=== PATIENT | female | born 1985 | race African-American/Black ===

== ENCOUNTER 2018-04-16 11:11 | Outpatient (CLI) | payer MEDICAID ==
[2018-04-16] MEDS ORDERED: LACTATED RINGERS 500 ML IV ONE (11:19)
[2018-04-16 11:31] VITALS: BP 123/79
[2018-04-16 12:32] LABS: Bacteria,Urine 1+ /HPF (Negative); Bilirubin,Urine NEG (Negative); Blood,Urine NEG (Negative); Color,Urine Yellow (Yellow); Mucus,Urine FEW /HPF; Protein,Urine <15 mg/dL mg/dL (Negative)
[2018-04-16] MEDS ORDERED: CELESTONE SOLUSPAN IM ONE (12:44)
[2018-04-16] MEDS ORDERED: CELESTONE SOLUSPAN IM SCH (13:00)
--- NOTE | 2018-04-16 14:29 | Ultrasound Report ---
OB ULTRASOUND History well being. Technique: Transabdominal ultrasound with Doppler interrogation. Gestation: Single Position: Cephalic Amniotic Fluid: Low normal TOBIAS = 7.0 cm Heart Rate: 154 BPM BPD: 8.1 cm = 32 w 4 d HC: 29.8 cm = 33 w 1 d AC: 29.2 cm = 33 w 2 d FL: 6.3 cm = 32 w 4 d HC/AC Ratio: 1.0 Cephalic Index: 80.6 Estimated Weight: 2101 grams Clinical age = 33 w 5 d EDC: 05/30/18 US Gest. Age = 32 w 6 d EDC: 06/05/18 IMPRESSION: Viable, single intrauterine as described.
--- NOTE | 2018-04-16 14:31 | Ultrasound Report ---
ULTRASOUND BIOPHYSICAL PROFILE: History: well being Technique: Transabdominal ultrasound with Doppler interrogation. 2 - breathing movements 2 - movements 2 - posture and tone 2 - Qualitative amniotic fluid volume 8 - TOTAL SCORE OF POSSIBLE 8 Heart Rate (bpm) 154
== END 2018-04-16 12:58 | disposition home or self-care (01) ==
LOC: TRG 11:11
PROVIDERS: ATTEND Obstetrics & Gynecology
DX: O47.03 False labor before 37 completed weeks of gestation, third trimester (principal); O99.513 Diseases of the respiratory system complicating pregnancy, third trimester; O99.333 Smoking (tobacco) complicating pregnancy, third trimester; J45.909 Unspecified asthma, uncomplicated; F17.210 Nicotine dependence, cigarettes, uncomplicated; Z3A.33 33 weeks gestation of pregnancy
CPT/HCPCS: 59025; 76816; 76819; 81001; J0702